=== PATIENT | female | born 1965 | race Caucasian/White ===

== ENCOUNTER 2019-10-16 10:00 | Outpatient (RCR) | payer OTHER, SELFPAY ==
--- NOTE | 2019-10-10 18:25 | PTOPEVAL ---
PHYSICAL THERAPY EVALUATION AND PLAN OF CARE Thank you for referring this patient to [facility]. Leticia will be scheduled 0-1x/week for 4-6 weeks. Leticia is traveling for work and will need to schedule around her work travels. Please review, sign, date and return this plan of care MANDI. I agree with and certify that the following plan of care is medically necessary. Referring Physician Date Outpatient Past Medical History Past Medical History Past Medical History Status Patient Denies Significant Past Medical History Evaluation Information Problem Diagnosis left hip pain Onset 07/18/19 Cause insidious/repeated motion Subjective Information Leticia is here today with c/o Query Text:As Reported By Patient/ pain in left lateral hip. No Family pain in groin or radicular symptoms or back pain. Reports pain will increase with sprinting and yoga, but will be ok with walking and strider machine. Walking on an incline did irritate the hip a little. She reports she experienced similar symptoms on the right side that she was able to rehabilitate as a diagnosis of piriformis syndrome. Assessment Pain Scale Self Report Pain Assessment Left Hip(s) Reported Pain Level 2 Pain Description Aching,Soreness Pain Frequency Chronic,Intermittent Current Pain Intensity 2 Lowest Pain Intensity 0 Greatest Pain Intensity 6 Other Pain Aggravating Factors running, exercise/activity Pain Relief Interventions Used By Ice Patient Pain Score Pain Score 2: Self Report Hip Range of Motion Right Hip Lateral Rotation - Active 30 Hip Lateral Rotation - Passive 50 Left Hip Medial Rotation - Passive 20 Hip Lateral Rotation - Passive 65 Knee Range of Motion Bilateral Reason Not Measured WNL/Left,WNL/Right Hip Strength Left Hip Flexion Strength 4+ Good + Hip Extension Strength 3 Fair Hip Abduction Strength 4 Good Hip Medial Rotation Strength 4 Good Hip Lateral Rotation Strength 4- Good - Hip Strength Comments poor stability during single leg squat, right is better than left Muscle Length Testing Piriformis w/Hip Flexion >90 Degrees (R) Mild Tightness,(L) Moderate Tightness Palpation
--- NOTE | 2019-10-16 10:57 | PTOPEVAL ---
PHYSICAL THERAPY DISCHARGE REPORT Thank you for referring this patient to [facility]. Please review, sign, date and return this plan of care MANDI. I agree with and certify that the following plan of care is medically necessary. Referring Physician Date Assessment Status Discharge Outpatient Past Medical History Past Medical History Past Medical History Status Patient Denies Significant Past Medical History Evaluation Information Problem Diagnosis left hip pain Onset 07/18/19 Cause insidious/repeated motion Subjective Information Leticia will discharged after Query Text:As Reported By Patient/ today's appointment because Family she is moving to [place] and will not be able to return to this facility for further care. She states she is feeling more comfortable with her condition and the rehabilitation process. She also states understanding of current HEP and advanced HEP to be started 3-4weeks from now or when she feels comfortable. Symptoms today compared to 5 days ago at initial evaluation are nearly the same. Pain Assessment Left Hip Reported Pain Level 2 Pain Description Aching,Soreness Pain Frequency Chronic,Intermittent Current Pain Intensity 2 Lowest Pain Intensity 0 Other Pain Aggravating Factors running, exercise/activity Pain Relief Interventions Used By Ice Patient Interventions Used By Clinicians Exercise Pain Score Pain Score 2: Self Report Additional Pain Score Comments ran a mile at a stead pace with no pain in left hip over weekend Hip Range of Motion Right Hip Lateral Rotation - Active 30 Hip Lateral Rotation - Passive 50 Left Hip Medial Rotation - Passive 20 Hip Lateral Rotation - Passive 65 Knee Range of Motion Bilateral Reason Not Measured WNL/Left,WNL/Right Hip Strength Left Hip Flexion Strength 4+ Good + Hip Extension Strength 3 Fair Hip Abduction Strength 4 Good Hip Medial Rotation Strength 4 Good Hip Lateral Rotation Strength 4- Good - Hip Strength Comments poor stability during single leg squat, right is better
== END 2019-11-03 12:37 | disposition home or self-care (01) ==
LOC: ANHPT 10:00
DX: M25.562 Pain in left knee (principal)
CPT/HCPCS: 97110; 97161